=== PATIENT | female | born 1980 | race Two or more races ===

== ENCOUNTER 2019-07-18 11:41 | Emergency (ER) | payer MEDICAID ==
[~2019-07-18] VITALS: Ht 154.9 cm; Wt 66.0 kg
[2019-07-18] MEDS ORDERED: KETOROLAC 30MG/ML VIAL IM ONE (13:15)
[2019-07-18 13:36] VITALS: BP 155/78
== END 2019-07-18 14:40 | disposition home or self-care (01) ==
LOC: ER 11:41
DX: M25.562 Pain in left knee (principal); W18.39XA Other fall on same level, initial encounter; Y93.89 Activity, other specified; Y92.89 Other specified places as the place of occurrence of the external cause; Y99.8 Other external cause status
CPT/HCPCS: 73562; 81025; 96372; 99283; J1885; L1830